=== PATIENT | female | born 1980 ===

== ENCOUNTER → 2018-01-24 | Outpatient (CLI) | payer OTHER ==
[~2018-01-24] MED LIST: ACETAMINOPHEN500 M1 PO; DOCUSATE SODIU100 MG PO; IRON1 TAB PO; MIRALAX17 GM PO; Mylicon 125MG PO; NEURONTIN300 MG PO; PERCOCET 5-3251 EACH PO; PRENATAL CAPLE1 EACH PO; RHOGAM PLU300 MCG/SY IM
== END | disposition home or self-care (01) ==
LOC: RAD 11:58
DX: K43.2 Incisional hernia without obstruction or gangrene (principal); Z01.818 Encounter for other preprocedural examination

== ENCOUNTER 2018-01-29 06:20 | Day surgery (SDC) | payer OTHER ==
[~2018-01-29 06:20] MED LIST changes: -MIRALAX17 GM PO; -NEURONTIN300 MG PO; -PERCOCET 5-3251 EACH PO
[2018-01-29] MEDS ORDERED: NEURONTIN300 MG PO (16:51)
[2018-01-29] MEDS ORDERED: MIRALAX17 GM PO (16:51)
[2018-01-29] MEDS ORDERED: PERCOCET 5-3251 EACH PO (16:51)
== END 2018-01-29 18:30 | disposition home or self-care (01) ==
LOC: CIR.AMB 06:20
DX: K43.0 Incisional hernia with obstruction, without gangrene (principal)

== ENCOUNTER 2019-02-25 09:48 | Outpatient (CLI) | payer OTHER ==
[~2019-02-25 09:48] MED LIST changes: +MIRALAX17 GM PO; +NEURONTIN300 MG PO; +PERCOCET 5-3251 EACH PO
== END 2019-02-25 11:00 | disposition home or self-care (01) ==
LOC: PRENATAL 09:48
DX: O30.91 Multiple gestation, unspecified, first trimester (principal); O09.511 Supervision of elderly primigravida, first trimester

== ENCOUNTER → 2019-03-04 | Day surgery (SDC) | payer OTHER | END | disposition home or self-care (01) | LOC: CIR.AMB 13:12 | DX: O03.4 Incomplete spontaneous abortion without complication (principal) ==

== ENCOUNTER 2022-12-15 17:31 | Emergency (ER) | payer OTHER ==
[~2022-12-15] VITALS: Ht 175.3 cm; Wt 95.3 kg
== END 2022-12-15 20:57 | disposition home or self-care (01) ==
LOC: ER 17:31
DX: N93.8 Other specified abnormal uterine and vaginal bleeding (principal); Z88.6 Allergy status to analgesic agent